=== PATIENT | female | born 1950 | race Caucasian/White ===

== ENCOUNTER 2024-09-29 08:51 | Outpatient (CLI) | payer MEDICARE, OTHER, SELFPAY ==
[2024-10-20 19:06] VITALS: BMI 37.1
--- NOTE | 2024-10-20 19:06 | WPDSLEEPSTUD ---
Sleep Study Date of Study: 09/29/24 Ordering Provider: NEIL,AIXA Carlos Interpreting Physician: Fern Martinez, Sleep Study Type: CPAP Titration Height: 1.68 m Weight: 104.326 kg Body Mass Index: 37.1 Neck Circumference (inches): 15 [place]: 3 Reason for Sleep Study Difficulty falling and staying asleep Sleep History The patient is a 74-year-old female with previously diagnosed sleep apnea that had a CPAP titration ordered by her ENT for difficulty falling and staying asleep despite resolution of her sleep apnea. The patient denies awakening from sleep short of breath. She denies awakening at night with heartburn, belching or cough. She denies snoring. She denies having trouble sleeping when she has a cold. She denies waking up gasping for air throughout the night. She denies having breathing problems at night observed by herself or others. She rarely sweats excessively at night. She denies having heart palpitations or irregular heartbeats during the night. She rarely falls asleep during the day but never while driving. The patient denies sleep paralysis, cataplexy and hypnagogic / hypnopompic hallucinations. She denies having trouble at school or work due to sleepiness. She denies feeling afraid of going to sleep. She rarely has nightmares. She frequently remembers her dreams. She denies having thoughts racing through her mind. She rarely feels sad or depressed. She frequently has anxiety. She frequently has muscular tension. She denies noticing parts of her body jerk. She denies kicking during the night. She denies having crawling and aching feelings in her legs and denies having leg pain during the night. She is frequently bothered by pain during the day but rarely awakened by pain during the night. She frequently wakes up feeling stiff in the morning. She rarely wakes up with sore or achy muscles. She frequently wakes up with pain in the neck, spine or other joints. She goes to bed at 9:00 p.m. on weekdays and between 10:00 p.m. to midnight on the weekends. It takes her 10-20 minutes to fall asleep. She wakes up 1-2 times throughout the night to urinate and is able to fall back asleep within 5-10 minutes. She wakes up between 9-10 a.m. on both weekdays and weekends. She typically gets 7-9 hours of sleep per night. She will stay in bed up to 20 minutes after waking up in the morning. she currently lives with her . She denies consuming any caffeinated beverages within 2 hours of bedtime. She denies engaging in physical exercise before bedtime. She will read before falling asleep. She denies watching television before falling asleep. She denies taking naps in afternoon or the evening. She has 2 cups of a caffeinated beverage per day. She has a 3-5 mg at a full in the evening. She denies consuming alcoholic beverages. Sleep Procedure A full night CPAP Titration using the [employer] multi-channel system recorded the standard physiologic parameters including EEG, EOG, submentalis EMG, anterior tibialis EMG, EKG, body position, nasal and oral airflow using nasal pressure sensor and thermistor.? Respiratory parameters of chest and abdominal movements were recorded with Respiratory Inductance Plethysmography belts. Oxygen saturation was recorded by pulse oximetry. Video monitoring was also performed. Sleep stages, periodic limb movements, and EEG arousals were scored in 30 second epochs according to the criteria of the AASM Scoring Manual. The Apnea-Hypopnea Index was calculated using CMS guidelines for definition of hypopnea with 4% O2 desaturations while scoring respiratory events. Sleep Architecture The total recording time was 466.9 minutes.? The total sleep time was 398.5 minutes. Sleep latency was 22.8 minutes. REM sleep was not achieved during this study. Sleep efficiency was 85.4%. The patient had 34 awakenings for an awakening index of 5.1. Wake after Sleep Onset time was 45.5 minutes. The patient spent 51.0 minutes, 12.8% of total sleep time in Stage N1. The patient spent 339.0 minutes, 85.1% in Stage N2. The patient spent 8.5 minutes, 2.1% in Stage N3. The patient spent 0.0 minutes, 0.0% in Stage REM. Respiratory Analysis The patient had 53 hypopneas and 8 central apneas for an overall Apnea Hypopnea Index of 9.0 events per hour. The REM Apnea Hypopnea Index was 0. The NREM Apnea Hypopnea Index was 9.0. The patient had a Central Apnea Hypopnea Index of 1.2. There was no evidence of [place]-Ram[place] Respirations. The patient was started on CPAP 5 cm H2O and titrated to CPAP 15 cm H2O due to hypopneas. The patient was able to fall asleep starting on CPAP 5 cm H2O. The patient was unable to achieve REM sleep during this study. The patient was unable to achieve a residual AHI less than 5 during this study. When the patient moved into the supine position, she started to develop hypopneas. When she was titrated above 11 cm H2O, she started to develop central apneas. Arousals There were 95 total arousals for an arousal index of 14.3. There were 35 spontaneous arousals for an index of 5.3. ?There were 10 arousals due to respiratory events for an index of 1.5. There were 27 arousals due to periodic limb movements for an index of 4.1.? There were 23 arousals due to isolated limb movements for an index of 3.5. Periodic Limb Movements The patient had 58 isolated limb movements with an index of 8.7. The patient had 154 periodic limb movements with index of 23.2, which is elevated (normal < 15). Patient had a total of 212 limb movements with a total limb movement index of 31.9. Oximetry Data The patient had an average oxygen saturation of 90.4% in sleep with a minimum oxygen saturation of 85.0% and a maximum oxygen saturation of 96.0%. The patient had 73 oxygen desaturations that were 4% or greater resulting in an Oxygen Desaturation Index of 11.0.? The patient spent 27.6 minutes, 6% of total sleep time with an oxygen saturation below 88%. Snoring Profile Mild snoring was present during the majority of the study. The snoring resolved once the patient was titrated to CPAP 13 cm H2O. Cardiac Profile The EKG showed normal sinus rhythm. No arrhythmias or PVCs were seen. The patient had an average pulse rate of 66.1 bpm with a minimum pulse rate of 52.0 bpm and a maximum pulse rate of 78.0 bpm. ? EEG Profile No signs of seizure activity seen. The patient had a significant amount of alpha intrusion seen during her study. Assessment and Plan Assessment and Plan (1) ASIA (obstructive sleep apnea): Code(s): G47.33 - Obstructive sleep apnea (adult) (pediatric) Status: Acute Assessment and Plan: The patient was diagnosed with ASIA after a polysomnogram on 03/18/2018 showed an overall AHI of 21.7. She has been on ASV 04/28/12 and her compliance data shows a residual AHI of 1.9. If the patient is tolerating her current ASV pressure settings well and her echocardiogram shows an ejection fraction of 45% or more, I recommend staying on her current ASV settings rather than pursuing CPAP. She was unable to achieve REM sleep during this study and we were unable to achieve a residual AHI less than 5. Based on her compliance data, her sleep apnea is better controlled on her current ASV settings than any CPAP pressure tried during this study. Alpha intrusion was seen during the majority of the study. Alpha intrusion is typically seen in patients with chronic pain, fibromyalgia and uncontrolled mood disorders. Alpha intrusion often clinically presents as unrefreshing sleep or sleep-state misperception. Treatment is directed towards addressing the underlying cause. (2) PLMD (periodic limb movement disorder): Code(s): G47.61 - Periodic limb movement disorder Status: Acute Assessment and Plan: The patient had a significant number of limb movements during the study with the majority being periodic in nature. Approximately 18% of the periodic limb movements caused arousals in the patient's sleep. The patient's sleep history does not suggest Restless Leg Syndrome. I recommend that the patient have a serum ferritin drawn for evaluation of iron deficiency anemia. If the patient has a serum ferritin less than 75 ng/mL, I recommend starting a daily iron supplement and a Vitamin C supplement for better absorption. If the serum ferritin is greater than 75 ng/mL, I recommend starting a dopamine agonist and titrating the dose until symptoms resolve. There are nonpharmacological methods to treat limb movements including daily exercise, stretching calf muscles before bed, avoiding excessive amounts of caffeine and alcohol, vitamin B supplementation, magnesium lotion massaged into legs before bed, and use of a weighted blanket. Data The data obtained during this sleep study is adequate for interpretation. Certification This sleep study has been reviewed by a board certified sleep medicine physician.
== END 2024-09-30 06:36 | disposition home or self-care (01) ==
LOC: ANHCSM 08:52
PROVIDERS: PCP Family Medicine; Visit Provider Physician Assistant
DX: G47.33 Obstructive sleep apnea (adult) (pediatric) (principal); G47.61 Periodic limb movement disorder; G47.30 Sleep apnea, unspecified
CPT/HCPCS: 95811